=== PATIENT | female | born 1980 | race Caucasian/White ===

== ENCOUNTER 2016-07-26 17:15 | Emergency (ER) | payer OTHER ==
[2016-07-26 17:24] VITALS: BP 115/74; PULSE 79; RESP 18; TEMP 97.9; O2SAT 97
[2016-07-26] MEDS ORDERED: LETS SOLN TOPICAL 1 EA SYR TP ONE (17:32)
--- NOTE | 2016-07-26 18:04 | UCPHY ---
H & P Patient Type: Established Smoking Status: Never smoked Time Seen by Provider: 07/26/16 18:02 HPI/ROS: HPI: 36-year-old female presents to urgent care with chief concern right 2nd finger laceration, right 3rd finger avulsion. Symptoms onset 1 hour prior to arrival when she was cutting vegetables with a mandolin at home. Denies nausea , vomiting, weakness, numbness, or tingling of her fingers or hand. No decreased range of motion Up-to-date with tetanus. ROS: Constitutional: No fever, chills Cardiovascular: No dusky, cool extremity GI: no nausea, vomiting Musculoskeletal: No decreased ROM or joint pain Neuro: No headache. No weakness, numbness, or tingling of extremities Mental status: no change in mentation Skin: Laceration and avulsion as noted above (Justine Mcdonald) Physical Exam: Vital signs stable, reviewed by me General: Awake, alert, calm, cooperative. No acute distress. Head: Normalocephalic. Atraumatic. EENT: PERRLA. EOMI. CV: Radial pulses 2+ bilaterally. Brisk cap refill all extremities. Neuro: Alert. Oriented x 3. Speech clear. Sensation intact all extremities, specifically, sensation intact right 2nd finger tip and right 3rd finger tip Skin: Skin warm, dry. There is a 1 cm flap laceration located at the finger tip of the right 2nd finger, and a 1.5 cm diameter avulsion at the dorsum of the right 3rd finger, middle phalanx. Musculoskeletal: Strength 5+ all extremities. Range of motion intact right hand , specifically at the MCP J, PIPJ, and DIPJ of 2nd and 3rd fingers. Strength is 5+ to resistance of palmar flexion and dorsiflexion of the MCP J, PIPJ, and DIPJ of 2nd and 3rd fingers of right hand. (Justine Mcdonald) Constitutional: Initial Vital Signs Temperature (C) 36.6 C 07/26/16 17:21 Heart Rate 79 07/26/16 17:21 Respiratory Rate 18 07/26/16 17:21 Blood Pressure 115/74 07/26/16 17:21 O2 Sat (%) 97 07/26/16 17:21 O2 Delivery Mode Room Air Allergies/Adverse Reactions: amoxicillin [Amoxicillin] Allergy (Mild, Verified 07/15/14 19:30) Other-Enter Comments codeine [Codeine] Allergy (Mild, Verified 07/15/14 19:30) Other-Enter Comments Home Medications: Medication Instructions Recorded Albuterol [Proventil 2 mg (*)] 07/15/14 Medical Decision Making Procedures: After verbal consent was obtained and risks and benefits explained, the laceration was anesthetized using a total of 2 ml of 0.5% Marcaine. Lac then irrigated per protocol by sales service technician. Under sterile procedure, the wound was explored to its base with a gloved finger and no foreign body was identified. No deep structure identified. Wound was then draped and sterile procedure followed during laceration repair. Wound was repaired using #2, 5-0 Prolene sutures. After repair, laceration cleansed, bacitracin and sterile dressing applied. Procedure performed by myself. Procedure was simple. Pt tolerated the procedure well. Avulsion injury was irrigated per protocol by sales service technician. Copious amounts of bacitracin, sterile dressing, and tube gauze applied (Justine Mcdonald) Other Provider: The patient was evaluated and managed by the nurse practitioner, Justine Mcdonald. My co-signature indicates that I have reviewed this chart and I agree with the findings and plan of care as documented. I am the secondary supervising physician. (Maryam Tadeo) Departure - Departure Disposition: Home, Routine, Self-Care Clinical Impression: Laceration, Avulsion, skin Condition: Good Instructions: Laceration (ED), Skin Avulsion (ED) Additional Instructions: Plan: We saw you here today at the ED with a laceration of your finger. We closed the wound with to sutures. We'll have you leave the dressing on for 24 hours then remove it and begin cleaning the area daily by letting warm, soapy water run over it, but do not scrub or rub the site. Remove dried blood with a Q-tip dipped in water. Apply a thin layer of antibiotic ointment. Continue this routine daily. Recheck urgently if the area develops redness, swelling, increased pain, or red streaking above the wound, or if you develop a fever. Return to the emergency department in 7-10 days for suture removal. Return prior to then if any issues or concerns. For the avulsion skin injury, leave dressing on for 48 hours. Thereafter, remove and wash with warm, soapy water daily. Apply copious amounts of antibiotic ointment and nonstick dressing and cover with a sterile dressing. Do this daily until the area begins to heal. Follow up with your primary care provider for recheck of the right 3rd finger skin avulsion within the next 3-5 days for recheck without fail--When you call to schedule appointment, please let the office know you are an "ER follow up" appointment" For signs of infection including increased swelling, redness, drainage, red streaking return promptly for recheck You may use 600 mg of ibuprofen every 6 hours for fever, inflammation, or pain. Always take ibuprofen with food and stay well hydrated while taking. Do not exceed the maximum allowable dose in a 24 hour period which is 2400 mg. You may use 1000 mg of Tylenol every 8 hours. This may be staggered with the ibuprofen. Do not exceed the maximum dose in a 24 hour period which is 3 GM or 3000 mg. Referrals: Henry Wells, DO [Primary Care Provider] - As per Instructions - PQRS PQRS Measurement: Not applicable (Justine Mcdonald)
== END 2016-07-26 18:59 | disposition home or self-care (01) ==
LOC: CED 17:15
PROC: 0HQFXZZ Repair Right Hand Skin, External Approach (ICD-10-PCS; principal; 2016-07-26)
DX: S61.210A Laceration without foreign body of right index finger without damage to nail, initial encounter (principal); S61.212A Laceration without foreign body of right middle finger without damage to nail, initial encounter; Y92.019 Unspecified place in single-family (private) house as the place of occurrence of the external cause; W27.4XXA Contact with kitchen utensil, initial encounter; Y93.G1 Activity, food preparation and clean up; Y99.8 Other external cause status
CPT/HCPCS: 12001-PO; 99213-PO; G0463-PO